=== PATIENT | female | born 1965 | race Caucasian/White ===

== ENCOUNTER → 2018-01-21 10:20 | Outpatient (CLI) | payer BC | END | disposition home or self-care (01) | LOC: D.LAB 10:20 | DX: K52.831 Collagenous colitis (principal); R19.7 Diarrhea, unspecified; R10.30 Lower abdominal pain, unspecified ==

== ENCOUNTER 2018-02-07 10:28 | Day surgery (SDC) | payer BC ==
[2018-02-07 11:02] LABS: BASOPHILS 0.6 % (0-2); EOSINOPHILS 2.3 % (0-7); HEMATOCRIT 46.6 % (36.0-48.0); HEMOGLOBIN 15.8 g/dL (12-16); IMMATURE GRANULOCYTES 0.4 % (0-5); LYMPHOCYTES 29.5 % (15-50); MCH 32.9 pg (26.0-34.0); MCHC 33.9 g/dL (31.0-37.0); MCV 97.1 fL (80.0-100.0); MEAN PLATELET VOLUME 9.6 fL (7.4-10.4); MONOCYTES 10.8 % (2-11); NEUTROPHILS 56.4 % (40-80); PLATELET COUNT 216 10x3/uL (130-400); RDW 12.6 % (11.5-14.5); WBC 5.2 10x3/uL (4.8-10.8)
== END 2018-02-07 14:40 | disposition home or self-care (01) ==
LOC: D.OPS 10:28
PROVIDERS: Internal Medicine Gastroenterology
DX: K52.831 Collagenous colitis (principal); K44.9 Diaphragmatic hernia without obstruction or gangrene; Z01.812 Encounter for preprocedural laboratory examination